=== PATIENT | male | born 1980 | race Two or more races ===

== ENCOUNTER → 2019-03-11 | Outpatient (CLI) | payer OTHER ==
--- NOTE | 2019-03-11 13:53 | RAD ---
ABDOMEN COMPLETE History: Elevated liver function tests Comparison: None. Findings: Multiple sonographic images of the abdomen are submitted. Midline structures are poorly seen due to bowel gas, inferior vena cava and abdominal aorta as well as pancreas not well-visualized. There is coarsening of the hepatic echotexture, limited evaluation for underlying focal hepatic lesion. Right lobe of the liver is estimated about 18.9 cm longitudinal. Gallbladder is present without intraluminal abnormality, wall thickening, pericholecystic fluid. Common bile duct is within normal limits at 0.4 cm. Right kidney measured 13.6 x 7.7 x 7.3 cm, no hydronephrosis. Spleen measured up to 19.7 cm x 7.1 cm x 7.7 cm. Left kidney measured 14.1 x 4.9 x 5.9 cm, no hydronephrosis. Impression: 1. There is splenomegaly. There is hepatic steatosis. Midline structures are poorly visualized due to bowel gas. 2. There is bilateral nephromegaly, no hydronephrosis. Electronically signed by: Krishna Sparks MD (03/11/2019 1:50 PM) [id number]
== END | disposition home or self-care (01) ==
LOC: US 08:26
PROVIDERS: ATTEND Internal Medicine
DX: K76.0 Fatty (change of) liver, not elsewhere classified (principal); R16.1 Splenomegaly, not elsewhere classified
CPT/HCPCS: 76700